=== PATIENT | female | born 1995 | race Two or more races ===

== ENCOUNTER 2025-01-18 18:46 | Emergency (ER) | payer OTHER, SELFPAY ==
--- NOTE | ~2025-01-18 | XR_ITS ---
CLINICAL HISTORY: CP, SOB 2 view chest x-ray Comparison: None Findings: The lungs are clear. Heart size is normal. No acute fracture. IMPRESSION: 1. No acute findings. This document has been electronically signed by: Bernadette Jackson MD on 01/18/2025 20:28:18
--- NOTE | 2025-01-18 18:52 | ECG_ITS ---
Test Reason : CHEST PAIN Blood Pressure : */* mmHG Vent. Rate : 86 BPM Atrial Rate : 86 BPM P-R Int : 150 ms QRS Dur : 82 ms QT Int : 364 ms P-R-T Axes : 53 62 49 degrees QTcB Int : 435 ms Normal sinus rhythm Normal ECG No previous ECGs available Referred By: Leana Graham Electronically Signed By: Conrado Kan
--- OUTSIDE RECORDS SUMMARY | 2025-01-18 19:07 | XMS_ITS | Clinical Summary ---
Author Organization [employer] Address [address] [facility] [address] [place] [address] Care Team Providers Care Club Car Attendant Name Role Phone Unavailable Primary Care Provider Unavailabl e Encounters Date Type Department Care Team Description 01/15/2025 Telephone [facility] MEDICINE [address] [place] [address] [phone] Lito Cabrera MD Results (Patient requesting to be added to the new patient wait list. ) from Last 3 Months Social History Tobacco Use Types Packs/Day Years Used Date Smoking Tobacco: Never Assessed Comments Unknown Sex and Gender Information Value Date Recorded Sex Assigned at Female 07/19/2022 10:40 AM EDT Legal Sex Female 10:40 AM EDT Gender Identity Female 07/19/2022 10:40 AM EDT Sexual Orientation Straight 07/19/2022 10 :40 AM EDT Last Filed Vital Signs Vital Sign Reading Time Taken Comments Blood Pressure 130/72 04/13/2022 12:07 AM EDT Pulse 101 04/13/2022 12:07 AM EDT Temperature - - Respiratory Rate - - Oxygen Saturation - - Inhaled Oxygen Concentration - - Weight 67.6 kg (149 lb) 04/13/2022 12:07 AM EDT Height 170.2 cm (5' 7 ) 04/13/2022 12:07 AM EDT Body Mass Index 23.34 04/13/2022 12:07 AM EDT Plan of Treatment Health Maintenance Due Date Last Done Comments Depression Screening 1994 Alcohol/Substance Use Screening 2006 Tobacco Screening 2006 Family Planning (PISQ) 2009 DTaP/Tdap/Td Vaccines (1 - Tdap) 2013 Hepatitis B Vaccines (1 of 3 - 19+ 3-dose series) 2013 Pap Smear 2015 COVID-19 Vaccine (2023-2 5 season) 2024 Influenza Vaccine (#1) 2024 Cervical Cancer Screening 2024 HPV/Cotest 2024 Zoster Vaccines (1 of 2) 2044 RSV Patients and Pa tients Aged 60 years or older (1 - 1-dose 75+ series) 2069 HIB Vaccines Aged Out No longer eligi ble based on patient's age to complete this topic HPV Vaccines Aged Out No longer eligi ble based on patient's age to complete this topic Hepatitis A Vaccines Aged Out No long er eligible based on patient's age to complete this topic IPV Vaccines Aged Out No longer eligi ble based on patient's age to complete this topic Meningococcal Vaccine Aged Out No harshal laurita eligible based on patient's age to complete this topic Pneumococcal Vaccine: Pediat rics (0 to 5 Years) and At-Risk Patients (6 to 49) Years) Aged Out No longer eligible b ased on patient's age to complete this topic RSV under 20 months Aged Out No longe r eligible based on patient's age to complete this topic Rotavirus Vaccines Aged Out No longer eligible based on patient's age to complete this topic
--- OUTSIDE RECORDS SUMMARY | 2025-01-18 19:07 | XMS_ITS | Clinical Summary ---
Author Organization [facility] Address [address] [place] [address] Care Team Providers Care Stringer Up Soldering Machine Name Role Phone Fernandez Yan PA-C Primary Care Provider [phone] Source Comments PLEASE NOTE, if this patient is a minor, it may be UNLAWFUL to discuss sensitive information that is contained in these records (such as FAMILY PLANNING, MENTAL HEALTH or SUBSTANCE ABUSE) with the minor patient's parent or other person without the patient's specific authorization.[facility] Allergies No known active allergies Medications albuterol sulfate 90 mcg/actuation inhalerIndication s:Mild intermittent asthma without complication ([facility]) Inhale 2 Puffs into the lungs every 4 to 6 (four to six) hours as needed for shortness of breath or wheezing 1 Inhaler 5 0 Active cholecalciferol, vitamin D3, 25 mcg (1,000 unit) tabletIndications :Vitamin D deficiency Take 1 Tab by mouth once daily 90 Tab 1 0 Active Active Problems Problem Noted Date Diagnosed Date COVID-19 08/09/2020 Overview (08/09/2020): COVID-19 Tracking [reviewed or updated 08/09/2020] ? ? COVID-19 Tested? - Yes - Date Tested 08/06/20 Testing Location - Other [address] testing site in [facility] - Testing Results - Positive ? ? Is patient ? No Vitamin D deficiency 07/27/2020 Asthma ([facility]) Myopia of both eyes with astigmatism Family History Medical History Relation Name Comments No Known Problems Father amnesia Maternal Grandfather Asthma Mother No Known Problems Paternal Grandfather No Known Problems Paternal Grandmother No Known Problems Sister 2 Relation Name Status Comments Father Alive Maternal Grandfather Alive Maternal Grandmother Alive Mother Alive Paternal Grandfather Alive Paternal Grandmother Alive Sister 2 Alive Social History Tobacco Use Types Packs/Day Years Used Date Smoking Tobacco: Never Smokeless Tobacco: Never Alcohol Use Standard Drinks/Week Comments Never 0 (1 standard drink = 0.6 oz pur e alcohol) Social Connections Answer Date Recorded Connectedness 0 05/27/2024 Financial Resource Strain Answer Date R ecorded Financial Resource Strain 0 2019 Stress Answer Date Recorded Stress 0 07/23/2020 Physical Activity Answer Date Recorded Physical Activity 0 07/23/2020 Food Insecurity Answer Date Recorded Food 0 06/14/2024 Transportation Needs Answer Date Record ed Transportation 0 07/23/2020 Housing Stability Answer Date Recorded Housing 0 07/23/2020 Safety and Environment Answer Date Derian rded Safety 0 07/23/2020 Utilities Answer Date Recorded Utilities 0 07/23/2020 Employment Answer Date Recorded Employment 0 07/23/2020 Comments No Sex and Gender Information Value Date Recorded Sex Assigned at Female 07/23/2020 3:04 PM PST Legal Sex Female 6:41 AM PDT Gender Identity Female 07/23/2020 3:04 PM PST Sexual Orientation Straight 07/23/2020 3: 04 PM PST 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 Not on file Not on f ile Last Filed Vital Signs Vital Sign Reading Time Taken Comments Blood Pressure 118/80 07/23/2020 1:59 PM EST Pulse 84 07/23/2020 1:59 PM EST Temperature 37.7 ??C (99.9 ??F) 07/23/2020 1:59 PM ES T Respiratory Rate 16 07/23/2020 1:59 PM EST Oxygen Saturation - - Inhaled Oxygen Concentration - - Weight 77.1 kg (170 lb) 07/23/2020 1:59 PM EST Height 172 cm (5' 7.72 ) 07/23/2020 1:59 PM EST Body Mass Index 26.06 07/23/2020 1:59 PM EST Plan of Treatment Health Maintenance Due Date Last Done Comments Anxiety Screening 1994 HPV Screening 1994 Pap + HPV 1994 Tobacco Screening 1994 Imm-DTaP/Tdap/Td (1 - Tdap) 2013 Imm-Hepatitis B (1 of 3 - 19+ 3-dose series) 3 Imm-Pneumococcal (1 of 2 - PCV) 2013 Cervical Cancer Screening 2015 Pap Smear 2015 Annual Preventive Care Visit 07/23/2021 07/23/2020 Relationship Safety Screening/Counseling 07/23/2021 07/23/2020 Hypertension Screening (#1) 07/23/2023 [id number] ( - season) 2024 Imm-Influenza (#1) 2024 Alcohol and Drug Screen 09/19/2024 07/23/2020 Depression Annual Screen 09/19/2024 07/23/2020 HIV Screening Completed 07/23/2020 Hepatitis C Screening Completed 07/23/2020 Cervical Ablation/Cold-Knife Conization Discontinued Cervical Cryotherapy Discontinued Colposcopy Discontinued Endometrial Biopsy Discontinued Excision/Leep Discontinued HPV Genotyping Discontinued Vaginal Pap Discontinued Vulvoscopy Discontinued Procedures Procedure Name Priority Date/Time Associated Diagnosis Comments ANTIBODY HIV-1&HIV-2 SINGLE RESULT Routine 07/23/2020 2:35 PM EST Screening for viral disease HEPATITIS C ANTIBODY Routine 07/23/2020 2:35 PM EST Screening for viral disease from Last 3 Months or Most Recently Relevant to Health Maintenance Results * HEPATITIS C ANTIBODY (07/23/2020 2:35 PM EST) HEPATITIS C VIRUS SCREEN NEGATIVE NEGATIVE [facility] Blood Blood / Unknown 07/23/2020 2 :35 PM EST 07/23/2020 2:43 PM EST Narrative [facility] 07/23/2020 6:42 PM EST [employer], a member of [address] [address] Consultant - Jovanna Brothers MD PT ID [id number] ORD# [id number] [facility] - BLOOD DRAW Final Result [employer] [address], [place] [phone] * HIV-1 & HIV-2 ANTIBODIES (07/23/2020 2:35 PM EST) HIV 1 AND 2 ANTIBODY SCREEN NEGATIVE NEGATIVE [facility] Comment: This assay is a 4th generation assay allowing for earlier detection of HIV infection by detecting the presence of the HIV-1 p24 antigen as well as the traditional antibodies to HIV type 1 (including group O) and type 2. ??Use of a 4th generation assay is the current CDC recommendation for HIV screening. Blood Blood / Unknown 07/23/2020 2 :35 PM EST 07/23/2020 2:43 PM EST Narrative [facility] - 07/23/2020 6:42 PM EST [employer], a member of [address] [address] Consultant - Jovanna Brothers MD PT ID [id number] ORD# [id number] [facility] - BLOOD DRAW Final Result [address] [address], from Last 3 Months or Most Recently Relevant to Health Maintenance Insurance [employer] Member Subscriber Plan / Payer (Ef fective 2024-Present) Name:Karrie Hess Relation to Subscriber:Self Name:Karrie Hess Payer ID:[id number] Group ID:Not on file Type:Indemnity Address: [facility] [address] [place] [address] Care Teams Stringer Up Soldering Machine Relationship Specialty Start Date End Date Fernandez Yan PA-C [address] [place] [address] PCP - General FAMILY MEDICINEMIKEY 01/14/22
--- OUTSIDE RECORDS SUMMARY | 2025-01-18 19:07 | XMS_ITS | Encounter Summary ---
Author Organization [employer] Address [address] [facility] 7[address] [place] [address] Care Team Providers Care Cougar Hunter Name Role Phone Unavailable Primary Care Provider Unavailabl e Reason for Visit * Reason Onset Date Comments Results 01/15/2025 Patient requesti ng to be added to the new patient wait list. Encounter Details Date Type Department Care Team ([facility] st Contact Info) Description 01/15/2025 Telephone [facility] MEDICINE [address] [place] [address] [phone] Name, MD Lito [address] [place] [phone] Results (Patient requesting to be added to the new patient wait list. ) Social History Tobacco Use Types Packs/Day Years Used Date Smoking Tobacco: Never Assessed Comments Unknown Sex and Gender Information Value Date Recorded Sex Assigned at Female 07/19/2022 10:40 AM EDT Legal Sex Female 10:40 AM EDT Gender Identity Female 07/19/2022 10:40 AM EDT Sexual Orientation Straight 07/19/2022 10 :40 AM EDT documented as of this encounter Miscellaneous Notes * Telephone Encounter - Myrna Cross - 01/15/2025 2:39 PM EDT Patient added to [facility] New Patient wait list as 01-15-2025 documented in this encounter Plan of Treatment Not on file documented as of this encounter Visit Diagnoses Not on filedocumented in this encounter
[2025-01-18 19:11] VITALS: BP 151/91; PULSE 86; RESP 18; TEMP 36.4; O2SAT 97; BMI 27.3
--- NOTE | 2025-01-18 19:12 | ED.CHESTPAIN ---
HPI - Chest Pain General Chief Complaint: Dyspnea Stated Complaint: CP, rib pain, back pain Time Seen by Provider: 01/18/25 23:06 Source: patient Mode of arrival: ambulatory Limitations: language barrier (Samoan) History of Present Illness ED Provider: KRISTINA HALE PA-C HPI narrative: 29 year old female with pmhx significant for asthma presents to the ED today for evaluation of bilateral rib pain and upper back pain x1 month. She reports associated shortness of breath. Reports history of asthma. She has been using her inhaler and nebulizer at home with little relief. Denies any injury/trauma/falls. Admits to associated dry cough. No sputum production. Denies chest pain, palpitations. Not on OCPs. Denies recent travel or long car rides. Denies fever, chills, sore throat, nausea, vomiting, abdominal pain, hemoptysis, leg pain/swelling. Related Data Previous Rx's ?Medication ?Instructions ?Recorded prednisone 20 mg tablet 40 mg (2 x 20 mg) PO DAILY 5 days 01/19/25 #10 tabs Allergies Allergy/AdvReac Type Severity Reaction Status Date / Time No Known Allergies Allergy Verified 01/18/25 19:13 [No Known Allergies*] Review of Systems Review of Systems: Yes all other systems are reviewed and are negative [facility] Past Medical History Attestation statement: The following information was validated with the patient. Source: old records reviewed and nursing notes reviewed Social History Social History Advance Directives: No Advance Directives Information Provided: No Do you have a plan to hurt others: No Plan Physical Exam Vital Signs: Vital Signs: Last Vital Signs Temp 98.2 F 01/18/25 23:53 Pulse 83 01/19/25 01:20 Resp 16 01/19/25 01:20 BP 133/84 01/18/25 23:53 Pulse Ox 96 01/18/25 23:53 O2 Del Method Room Air 01/18/25 23:53 BMI result Body Mass Index 27.3 Vital signs stable. Afebrile General: Well appearing, in no acute distress. Skin: Warm, dry, intact. No rashes or lesions. Head: Normocephalic, atraumatic. EENT: Hearing is intact b/l. Conjunctiva clear. Sclera is anicteric. Neck: Supple without LAD. Cardiac: Chest wall symmetric. RRR. Lungs: Normal respiratory effort without accessory muscle use. No tripoding. noted inspiratory and expiratory wheezes throughout Ext: Upper and lower extremities atraumatic, without tenderness, deformity, swelling or erythema. No pitting edema. No calf tenderness bilaterally. Neuro: AOx3. Normal speech. Ambulating with steady gait. Course Course Course Narrative: This is an RME performed by Bruce Graham CNP: Additional HPI, ROS, PE not included below will be deferred to primary provider. Patient is a 29-year-old female who presents emergency department for evaluation of chest pain, left lateral rib pain, upper back on the left side as well as shortness of breath. Onset 1 month ago. Symptoms worsened with deep inspiration. She states that last night she had a difficult time sleeping due to her symptoms which prompted her seeking evaluation today Plan: Serum labs, EKG, CXR, viral serologies Reevaluation(s) Reevaluation #1: 1400 -- CBC with slight leukocytosis to 11 which appears to be around her baseline. No left shift. No anemia. H&H stable. D-dimer undetectable, PE unlikely. Chemistry without acute electrolyte abnormality requiring intervention. No RACHEAL. Liver function WNL. Troponin undetectable. EKG showing normal sinus rhythm with a rate of 86 beats per minute, no acute ischemic changes or ST elevations. Chest x-ray without infiltrate or consolidation to suggest pneumonia. No pleural effusion. Negative COVID, flu, RSV. > exam concerning for asthma exacerbation. She was treated with breathing treatment and IV Solu-Medrol. On re-evaluation, patient reports significant improvement in symptoms. Her lungs are now CTA bilaterally. She states she feels well and would like to be discharged home. I feel this is reasonable. Will send a script for prednisone to pharmacy. Advised PCP follow-up. Patient has remained stable throughout ED visit today. Discussed worrisome signs and symptoms and when to return to the ED. All questions answered at this time. Patient is agreeable with disposition and stable for discharge. Medications Administered Discontinued Medications Generic Name Dose Route Start Last Admin Trade Name Freq PRN Reason Stop Dose Admin Albuterol/Ipratropium 3 ml 01/19/25 01:15 01/19/25 01:18 Albuterol/Iprat 2.5/0.5mg 3 Ml Ampul.Neb INHALE 01/19/25 01:16 3 ml ONCE ONE Administration Methylprednisolone Sodium Succinate 125 mg 01/19/25 00:54 01/19/25 01:25 Methylprednisolone Sod Succ 125 Mg/2 Ml Vial IVPUSH 01/19/25 00:55 125 mg ONCE ONE Administration Medical Decision Making Medical Decision Making [facility] Narrative: 29 year old female with pmhx significant for asthma presents to the ED today for evaluation of bilateral rib pain and upper back pain x1 month. Initially hypertensive. Not hypoxic. Afebrile. She is well-appearing and in no acute distress. On exam, normal respiratory effort without accessory muscle use. No tripoding. noted inspiratory and expiratory wheezes throughout. No pitting edema. No calf tenderness bilaterally. No JVD. Differential diagnosis consists of asthma exacerbation, costochondritis, ACS, PE, bronchitis, pneumonia, viral syndrome, arrhythmia labs, EKG, CXR, viral serologies ordered in triage Plan for bronchodilator protocol, solumedrol, and re-evaluation Differential Diagnosis Differential Diagnoses: The differential diagnosis associated with the presentation includes As above Admission/Observation Not indicated Lab Data [facility] Lab Attestation statement: I reviewed the patient's lab results. As above 01/18/25 19:53 01/18/25 19:53 Labs: Lab Results 01/18/25 Range/Units 19:53 WBC 11.0 H (4.8-10.8) X10*3/uL RBC 4.80 (4.20-5.50) X10*6/uL Hgb 13.7 (12.0-16.0) g/dl Hct 38.9 (37.0-47.0) % MCV 81.0 (80.0-98.0) fL MCH 28.5 (27.0-33.0) pg MCHC 35.2 H (31.0-35.0) g/dl RDW 12.2 (11.0-16.0) % Plt Count 348 (160-400) X10*3/uL MPV 9.0 L (9.4-12.3) fL Immature Gran % (Auto) 0.4 (0.0-0.4) % Neut % (Auto) 40.5 L (45-73) % Lymph % (Auto) 39.7 (20-40) % [place] % (Auto) 5.6 (2-11) % Eos % (Auto) 13.1 H (0-4) % Baso % (Auto) 0.7 (0-2) % Lymph # (Auto) 4.4 (1.2-4.9) X10*3/uL [place] # (Auto) 0.6 (0.1-1.2) X10*3/uL Eos # (Auto) 1.4 H (0.0-0.4) X10*3/uL Baso # (Auto) 0.1 (0.0-0.2) X10*3/uL Abs Immat Gran (auto) 0.04 H (0.00-0.03) X10*3/uL Absolute Neuts (auto) 4.5 (2.0-8.3) x10*3/uL Absolute Nucleated RBC 0.000 (0.0-0.012) X10*3/uL Nucleated RBC % (auto) 0.0 (0.0-0.2) /100WBC PT 11.1 (10.9-12.4) SEC INR 1.0 (0.9-1.1) D-Dimer High Sensitivty < 150 NG/ML Sodium 141 (135-145) mmol/L Potassium 4.2 (3.3-5.1) mmol/L Chloride 106 (96-108) mmol/L Carbon Dioxide 25 (22-29) mmol/L Anion Gap 14 (12-20) BUN 9 (9-16) mg/dL Creatinine 0.67 (0.5-1.4) mg/dL Estim Creat Clear Calc 128.4 Estimated GFR > 60 Random Glucose 88 (60-115) mg/dL Calcium 10.0 (8.4-10.2) mg/dL Total Bilirubin 0.3 (0.0-1.0) mg/dL AST 24 (5-31) U/L ALT 24 (0-31) U/L Alkaline Phosphatase 94 (39-117) U/L Troponin I High Sens < 2.7 (<3.5-17.0) ng/L Total Protein 8.1 H (6.5-8.0) g/dL Albumin 4.8 (3.5-5.0) g/dL Lipase 21 (8-78) U/L Influenza Type A (PCR) NEGATIVE (Negative) Influenza Type B (PCR) NEGATIVE (Negative) RSV RNA Qual (PCR) NEGATIVE (Negative) SARS-CoV-2 RNA (RT-PCR) NEGATIVE (Negative) Independent Interpretation I performed an independent interpretation of an: EKG and Plain X-Ray Interpretation: EKG showing normal sinus rhythm, rate of 86 beats per minute, no acute ischemic changes or ST elevation Chest x-ray without focal infiltrate or consolidation Radiology Impression Discussion of test interpretation with radiology: I have reviewed the radiologist's reading. Radiologist Impression: Ordering Physician: Leana Graham CNP Date of Service: 01/18/25 Procedure(s): ECG 12 lead EKG Accession Number(s): [id number] cc: ~ Test Reason : CHEST PAIN Blood Pressure : */* mmHG Vent. Rate : 86 BPM Atrial Rate : 86 BPM P-R Int : 150 ms QRS Dur : 82 ms QT Int : 364 ms P-R-T Axes : 53 62 49 degrees QTcB Int : 435 ms Normal sinus rhythm Normal ECG No previous ECGs available Ordering Physician: Leana Graham CNP Date of Service: 01/18/25 Procedure(s): XR chest 2V Accession Number(s): [id number] cc: Leana Graham CNP; Physician,Unknown ~ CLINICAL HISTORY: CP, SOB 2 view chest x-ray Comparison: None Findings: The lungs are clear. Heart size is normal. No acute fracture. IMPRESSION: 1. No acute findings. This document has been electronically signed by: Bernadette Jackson MD on 01/18/2025 20:28:18 Dictated By: Bernadette Jackson MD Signed By: <Electronically signed by Bernadette Jackson MD in OV> External Record Review External record reviewed: Inpatient record Prescription Management I considered prescription management with: Other (prednisone) Chronic Conditions Patient?s care impacted by: Other (asthma) Social Determinants Patient?s care significantly limited by Social Determinants of Health including: Other Social Determinant of Health Critical Care Time Critical Care Time Critical Care Time: No Discharge Plan Discharge Clinical Impression: Asthma with exacerbation Patient Disposition: Home, Self-Care Instructions: Asthma (ED) Additional Instructions: Your blood work is reassuring. You tested negative for COVID, flu, RSV. Your chest x-ray does not show pneumonia. You received a breathing treatment and steroid in the ED today with improvement. I am treating for an asthma exacerbation. Prednisone as a steroid that has been sent to your pharmacy. Take this once daily starting tomorrow as you already received a dose of steroids in the ED today. Continue your albuterol and nebulizer at home as needed. If you find that you are using this more often without improvement, please return to the ED as you may require further treatment. Follow up with your PCP as needed. Return with new or worsening symptoms. In the case of an emergency call 911. Prescriptions: New prednisone 20 mg tablet 40 mg PO DAILY 5 Days Qty: 10 0RF Referrals: Physician,Unknown J [Primary Care Provider] - Print Language: Samoan
[2025-01-18 19:57] LABS: MANUAL DIFF FLAG NO
[2025-01-18 20:00] LABS: Basophils Absolute Auto 0.1 X10*3/uL (0.0-0.2); Basophils Percent Auto 0.7 % (0-2); Eosinophils Absolute Auto 1.4 X10*3/uL (0.0-0.4); Eosinophils Percent Auto 13.1 % (0-4); Hematocrit 38.9 % (37.0-47.0); Hemoglobin 13.7 g/dl (12.0-16.0); Imm Gran Abs Auto 0.04 X10*3/uL (0.00-0.03); Imm Gran Pct Auto 0.4 % (0.0-0.4); Lymphocytes Absolute Auto 4.4 X10*3/uL (1.2-4.9); Lymphocytes Percent Auto 39.7 % (20-40); Mean Corpuscular HGB Conc 35.2 g/dl (31.0-35.0); Mean Corpuscular Hemoglobin 28.5 pg (27.0-33.0); Monocytes Absolute Auto 0.6 X10*3/uL (0.1-1.2); Monocytes Percent Auto 5.6 % (2-11); Neutrophils Absolute Auto 4.5 x10*3/uL (2.0-8.3); Neutrophils Percent Auto 40.5 % (45-73); Platelet Count 348 X10*3/uL (160-400); Red Cell Distribution Width 12.2 % (11.0-16.0)
[2025-01-18 20:06] LABS: Prothrombin Time 11.1 SEC (10.9-12.4)
[2025-01-18 20:16] LABS: Alanine Aminotransferase 24 U/L (0-31); Albumin Level 4.8 g/dL (3.5-5.0); Alkaline Phosphatase 94 U/L (39-117); Anion Gap 14 (12-20); Aspartate Amino Transferase 24 U/L (5-31); Bilirubin Total 0.3 mg/dL (0.0-1.0); Blood Urea Nitrogen 9 mg/dL (9-16); Carbon Dioxide 25 mmol/L (22-29); Chloride 106 mmol/L (96-108); Creatinine Clr Calc Pharmacy 128.4; Estimated Glomerular Filt Rate > 60; Glucose Random 88 mg/dL (60-115); Lipase 21 U/L (8-78); Potassium 4.2 mmol/L (3.3-5.1); Sodium 141 mmol/L (135-145); Total Protein 8.1 g/dL (6.5-8.0)
[2025-01-18 20:26] LABS: Troponin-I High Sensitivity < 2.7 ng/L (<3.5-17.0)
[2025-01-18 20:35] LABS: Influenza A PCR NEGATIVE (Negative); Influenza B PCR NEGATIVE (Negative); Resp Syncy Virus RNA Qual PCR NEGATIVE (Negative); SARS COV2 PCR INHOUSE NEGATIVE (Negative)
[2025-01-18 23:35] LABS: D Dimer High Sensitivity < 150 NG/ML
[2025-01-18 23:53] VITALS: BP 133/84; PULSE 83; RESP 16; TEMP 36.8; O2SAT 96
[2025-01-19] MEDS: Albuterol/Iprat 2.5/0.5MG 3 ML AMPUL.NEB INHALE (01:18)
[2025-01-19 01:20] VITALS: PULSE 83; RESP 16; O2SAT 96
[2025-01-19] MEDS: methylPREDNISolone Sod Succ 125 MG/2 ML VIAL IVPUSH (01:25)
--- NOTE | 2025-01-19 01:35 | PC.NURSE ---
pt moved to ed 24, to place on manager cardiac cath
[2025-01-19 02:33] VITALS: BP 154/93; PULSE 82; RESP 11; TEMP 36.4; O2SAT 98
== END 2025-01-19 02:37 | disposition home or self-care (01) ==
PROVIDERS: Nurse Practitioner Family; Physician Assistant Medical; Emergency Provider Emergency Medicine
DX: J45.901 Unspecified asthma with (acute) exacerbation (principal); R07.9 Chest pain, unspecified; M54.6 Pain in thoracic spine; R07.81 Pleurodynia; Z03.818 Encounter for observation for suspected exposure to other biological agents ruled out
CPT/HCPCS: 0241U; 36415; 71046; 80053; 83690; 84484; 85025; 85379; 85610; 93005; 94640; 96374; 99284; J2919

== ENCOUNTER → 2025-01-18 18:52 | Outpatient (BNV) | payer OTHER, SELFPAY | PROVIDERS: Emergency Provider Emergency Medicine; Visit Provider Internal Medicine Cardiovascular Disease | DX: R07.9 Chest pain, unspecified (principal) | CPT/HCPCS: 93010 ==

== ENCOUNTER → 2025-01-18 19:14 | Outpatient (BNV) | payer OTHER, SELFPAY | PROVIDERS: Visit Provider Nuclear Medicine | DX: R07.9 Chest pain, unspecified (principal); R06.02 Shortness of breath | CPT/HCPCS: 71046 ==

== ENCOUNTER → 2025-04-04 03:12 | Outpatient (BNV) | payer OTHER, SELFPAY | PROVIDERS: Visit Provider Radiology Vascular & Interventional Radiology | DX: R06.02 Shortness of breath (principal) | CPT/HCPCS: 71046 ==

== ENCOUNTER 2025-04-04 03:44 | Emergency (ER) | payer OTHER, SELFPAY ==
--- NOTE | 2025-04-04 | ECG_ITS ---
Test Reason : CHEST PAIN Blood Pressure : */* mmHG Vent. Rate : 97 BPM Atrial Rate : 97 BPM P-R Int : 140 ms QRS Dur : 80 ms QT Int : 350 ms P-R-T Axes : 50 67 55 degrees QTcB Int : 444 ms Normal sinus rhythm Normal ECG When compared with ECG of 18-Jan-2025 18:56, No significant change was found Referred By: Generic ED Physician Electronically Signed By: ISHA RAMIREZ
--- NOTE | ~2025-04-04 | XR_ITS ---
CLINICAL HISTORY: sob chest pain 2 view chest x-ray. Comparison: CR - XR CHEST 2V - 01/18/25 19:22 EDT Findings: The lungs are adequately expanded. No focal consolidation. No effusion or pneumothorax. Cardiac and mediastinal contours are within normal limits. No acute osseous abnormality Impression: No acute process. This document has been electronically signed by: Scott Quintana MD on 04/04/2025 05:16:42
[2025-04-04 03:59] VITALS: BP 135/98; PULSE 98; RESP 18; TEMP 36.6; O2SAT 97; BMI 26.6
[2025-04-04 04:20] LABS: Hematocrit 37.7 % (37.0-47.0); Hemoglobin 13.6 g/dl (12.0-16.0); Mean Corpuscular HGB Conc 36.1 g/dl (31.0-35.0); Mean Corpuscular Hemoglobin 29.1 pg (27.0-33.0); Mean Corpuscular Volume 80.7 fL (80.0-98.0); NRBC Abs Auto 0.000 X10*3/uL (0.0-0.012); NRBC Pct Auto 0.0 /100WBC (0.0-0.2); Platelet Count 188 X10*3/uL (160-400); Red Blood Count 4.67 X10*6/uL (4.20-5.50); White Blood Count 9.1 X10*3/uL (4.8-10.8)
[2025-04-04 04:34] LABS: Alanine Aminotransferase 23 U/L (0-31); Albumin Level 4.7 g/dL (3.5-5.0); Alkaline Phosphatase 83 U/L (39-117); Anion Gap 14 (12-20); Aspartate Amino Transferase 24 U/L (5-31); Blood Urea Nitrogen 11 mg/dL (9-16); Calcium 9.3 mg/dL (8.4-10.2); Carbon Dioxide 22 mmol/L (22-29); Chloride 107 mmol/L (96-108); Creatinine Clr Calc Pharmacy 116.4; Estimated Glomerular Filt Rate > 60; Potassium 3.4 mmol/L (3.3-5.1); Sodium 140 mmol/L (135-145); Total Protein 7.6 g/dL (6.5-8.0)
[2025-04-04 04:48] LABS: Troponin-I High Sensitivity < 2.7 ng/L (<3.5-17.0)
[2025-04-04 04:53] VITALS: BP 146/92; PULSE 85; RESP 18; O2SAT 98
--- OUTSIDE RECORDS SUMMARY | 2025-04-04 04:53 | XMS_ITS | Clinical Summary ---
Author Organization [facility] Address [address] [place] [address] Care Team Providers Care Cra Officer Name Role Phone Fernandez Yan PA-C Primary Care Provider [phone] Source Comments PLEASE NOTE, if this patient is a minor, it may be UNLAWFUL to discuss sensitive information that is contained in these records (such as FAMILY PLANNING, MENTAL HEALTH or SUBSTANCE ABUSE) with the minor patient's parent or other person without the patient's specific authorization.[facility] Allergies No known active allergies Medications albuterol sulfate 90 mcg/actuation inhalerIndication s:Mild intermittent asthma without complication ([facility]) Inhale 2 Puffs into the lungs every [...] (08/09/2020): COVID-19 Tracking [reviewed or updated 08/09/2020] COVID-19 Tested? - Yes - Date Tested 08/06/20 Testing Location - Other [address] testing site in [facility] - Testing Results - Positive Is patient ? 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 Not on file Not on f ile Last Filed Vital Signs Vital Sign Reading Time Taken Comments Blood Pressure 118/80 07/23/2020 1:59 PM EST Pulse 84 07/23/2020 1:59 PM EST Temperature 37.7 C (99.9 F) 07/23/2020 1:59 PM EST Respiratory Rate 16 07/23/2020 1:59 PM EST Oxygen Saturation - - Inhaled Oxygen Concentration - - Weight 77.1 kg (170 lb) 07/23/2020 1:59 PM EST Height 172 cm (5' 7.72 ) 07/23/2020 1:59 PM EST Body Mass Index 26.06 07/23/2020 1:59 PM EST Plan of Treatment Not on file Insurance [employer] Member Subscriber Plan / Payer (Ef fective 2024-Present) Name:Karrie Hess Relation to Subscriber:Self Name:Karrie Hess Payer ID:[id number] Group ID:Not on file Type:Indemnibrooklynn Address: [facility] [address] [place] [address] Care Teams Cra Officer Relationship Specialty Start Date End Date Fernandez Yan PA-C [address] [place] [address] PCP - General FAMILY MEDICINE PA 01/14/22
--- OUTSIDE RECORDS SUMMARY | 2025-04-04 04:53 | XMS_ITS | Clinical Summary ---
Author Organization [employer] Address [address] [facility] [address] [place] [address] Care Team Providers Care Hosiery Bagger Name Role Phone Unavailable Primary Care Provider Unavailabl e Encounters Date Type Department Care Team Description 01/15/2025 Telephone [facility] [address] [place] [phone] Lito Cabrera MD Results (Patient requesting to [...] 04/13/2022 12:07 AM EDT Plan of Treatment Upcoming Encounters Date Type Department Care Team ([facility] st Contact Info) Description 05/08/2025 9:00 AM EDT Office Visit [facility] [address] [place] [address] Lito Cabrera MD [address] [place], [place] [phone] Health Maintenance Due Date Last Done Comments Depression Screening 1994 HIV Screening 1994 SDOH Screening 1994 Disability Screening 1994 Alcohol/Substance Use Screening 2006 Tobacco Screening 2006 Family Planning (PISQ) 2009 HPV Vaccines (1 - 3-dose series) 2009 Hepatitis C Screening 2012 DTaP/Tdap/Td Vaccines (1 - Tdap) 2013 Hepatitis B Vaccines (1 of 3 - 19+ 3-dose series) 2013 Pap Smear 2015 COVID-19 Vaccine (2 - 2023-2 5 season) 2024 05/05/2021 Cervical Cancer Screening 2024 HPV/Cotest 2024 Influenza Vaccine (#1) 2025 Zoster Vaccines (1 of 2) 2044 RSV [...] patient's age to complete this topic Meningococcal B Vaccine Aged Out No l onger eligible based on patient's age to complete this topic Meningococcal Vaccine Aged Out No harshal laurita eligible based on patient's age to complete this topic Pneumococcal Vaccine: Pediat rics (0 to 5 Years) and At-Risk Patients (6 to 49) Years Aged Out No longer eligi ble based on patient's age to complete this topic RSV under 20 months Aged Out No longe r eligible based on patient's age to complete this topic Rotavirus Vaccines Aged Out No longer eligible based on patient's age to complete this topic
[2025-04-04 04:58] LABS: Resp Syncy Virus RNA Qual PCR NEGATIVE (Negative); SARS COV2 PCR INHOUSE NEGATIVE (Negative)
[2025-04-04 06:58] VITALS: BP 139/93; PULSE 94; RESP 16; TEMP 36.9; O2SAT 96
--- NOTE | 2025-04-04 07:01 | ED_ITS ---
HPI - Asthma General Chief Complaint: Dyspnea Stated Complaint: Asthma + CP Time Seen by Provider: 04/04/25 06:58 Source: patient, old records reviewed and educational sign language interpreter Mode of arrival: ambulatory Limitations: no limitations History of Present Illness ED Provider: PAM SEBASTIAN Narrative: 29 yo female with PMH of poorly controlled asthma she states she uses albuterol and daily steroid inhaler - orange inhaler which would be flovent. She notes she has had a bad run of asthma recently took 5 day burst on 03/13 with some improvement but worse again. No fevers, no sputum, no chest pains. She is not on any OCPs. no travel or procedures. She states she tries albuterol but it continues. MD complaint: asthma attack , shortness of breath and wheezing Onset (ago): week(s) Severity: moderate Context: other Associated symptoms: dry cough Asthma History: childhood onset Treatments Prior to Arrival: inhaled bronchodilator and inhaled steroid Related Data Previous Rx's ?Medication ?Instructions ?Recorded prednisone 20 mg tablet 40 mg (2 x 20 mg) PO DAILY 5 days 01/19/25 #10 tabs prednisone 10 mg tablet 10 mg PO DIRECTED #41 tab s 04/04/25 Allergies Allergy/AdvReac Type Severity Reaction Status Date / Time No Known Allergies (No Known Allergy Verified 04/04/25 03:59 Allergies*) Review of Systems 2 Review of Systems: Constitutional : No Fever, No Chills ENT/Mouth : No Hoarseness, No sore throat, No Rhinorrhea Eyes: No Redness, No Discharge, No Vision Changes Cardiovascular : No Chest Pain, positive SOB, positive Dyspnea on Exertion, No Edema Respiratory : positive Cough, No Sputum, positive Wheezing, Gastrointestinal : No Nausea, No Vomiting, No Diarrhea, No abdominal Pain Genitourinary : No Dysuria, No Hematuria Musculoskeletal : No joint pain, No Myalgias Skin : No rash Neuro : No Weakness, No Numbness, No Headache Psych : No anxiety, depression Heme/Lymph: No Bruising, No Bleeding Endocrine : No Polyuria, No Polydipsia All other systems reviewed and are negative PMFSH Past Medical History Attestation statement: The following information was validated with the patient. Source: old records reviewed Medical History (Updated 04/04/25 @ 07:45 by Melissa Huerta DO) Asthma Social History Social History (Updated 07/17/25 @ 07:36 by Melissa Huerta DO) Patient Tobacco Use Status: Never used Tobacco Smoked in Last 30 Days: No Use of substances other than those prescribed or required for medical reasons: No Advance Directives: No Advance Directives Information Provided: Yes Physical Exam 2 Vital Signs: Vital Signs: Last Vital Signs Temp 98.4 F 04/04/25 06:58 Pulse 94 04/04/25 06:58 Resp 16 04/04/25 06:58 BP 139/93 H 04/04/25 06:58 Pulse Ox 96 04/04/25 06:58 O2 Del Method Room Air 04/04/25 06:58 BMI result Body Mass Index 26.6 Appearance: Alert. Oriented X3. No acute distress. Eyes: Pupils equal, round and reactive to light. ENT: Pharynx normal. Neck: Normal inspection. Neck supple. CVS: Normal heart rate and rhythm. Pulses normal. Respiratory: No respiratory distress. Breath sounds diffuse exp wheezes noted. Abdomen: Soft and nontender. Skin: Skin warm and dry. Normal skin color. Normal skin turgor. Extremities: No lower extremity edema. No calf ttp Neuro: Oriented X 3. No motor deficit. No sensory deficit. CN2-12 intact Medications Administered Discontinued Medications Generic Name Dose Route Start Last Admin Trade Name Freq PRN Reason Stop Dose Admin Prednisone 60 mg 04/04/25 07:17 04/04/25 07:24 Prednisone 20 Mg Tablet PO 04/04/25 07:18 60 mg ONCE ONE Administration Medical Decision Making Medical Decision Making [facility] Narrative: 29 yo female with asthma here with c/o asthma exacerbation again she feels tightness and pain in her lungs. She states she just completed 5 day course on 03/19. No fevers, no cough, no OCPs. At this time she is wheezing on exam but not labored she will get viral panel, CXR, EKG. Start on prednisone taper. Differential Diagnosis Differential Diagnoses: The differential diagnosis associated with the presentation includes asthma, URI doubt VTE she is PERC negative Admission/Observation Consideration of admission/observation: Escalation of care including admission/observation considered no hypoxia feeling better stable for DC Lab Data [facility] Lab Attestation statement: I reviewed the patient's lab results. 04/04/25 04:16 04/04/25 04:16 Labs: Lab Results 04/04/25 Range/Units 04:16 WBC 9.1 (4.8-10.8) X10*3/uL RBC 4.67 (4.20-5.50) X10*6/uL Hgb 13.6 (12.0-16.0) g/dl Hct 37.7 (37.0-47.0) % MCV 80.7 (80.0-98.0) fL MCH 29.1 (27.0-33.0) pg MCHC 36.1 H (31.0-35.0) g/dl RDW 12.7 (11.0-16.0) % Plt Count 188 D (160-400) X10*3/uL MPV 10.1 (9.4-12.3) fL Absolute Nucleated RBC 0.000 (0.0-0.012) X10*3/uL Nucleated RBC % (auto) 0.0 (0.0-0.2) /100WBC Sodium 140 (135-145) mmol/L Potassium 3.4 (3.3-5.1) mmol/L Chloride 107 (96-108) mmol/L Carbon Dioxide 22 (22-29) mmol/L Anion Gap 14 (12-20) BUN 11 (9-16) mg/dL Creatinine 0.73 (0.5-1.4) mg/dL Estim Creat Clear Calc 116.4 Estimated GFR > 60 Random Glucose 110 (60-115) mg/dL Calcium 9.3 D (8.4-10.2) mg/dL Total Bilirubin 0.5 (0.0-1.0) mg/dL AST 24 (5-31) U/L ALT 23 (0-31) U/L Alkaline Phosphatase 83 (39-117) U/L Troponin I High Sens < 2.7 (<3.5-17.0) ng/L Total Protein 7.6 (6.5-8.0) g/dL Albumin 4.7 (3.5-5.0) g/dL Influenza Type A (PCR) NEGATIVE (Negative) Influenza Type B (PCR) NEGATIVE (Negative) RSV RNA Qual (PCR) NEGATIVE (Negative) SARS-CoV-2 RNA (RT-PCR) NEGATIVE (Negative) Independent Interpretation I performed an independent interpretation of an: EKG and Plain X-Ray (normal ) Interpretation: Rate: 97 Rhythm: NSR [place]: normal Normal P waves. Normal FLORENCIO. Normal QRS complex. ST T wave : no GORAN, inverted t wave V1 qTC: 444 prior studies: no ischemia The study has been interpreted contemporaneously by me. . Radiology Impression Discussion of test interpretation with radiology: I have reviewed the radiologist's reading. External Record Review External record reviewed: Outpatient record Prescription Management I considered prescription management with: Antibiotic and Other Discharge Plan Discharge Clinical Impression: Asthma with exacerbation Patient Disposition: Home, Self-Care Instructions: Asthma (ED) Additional Instructions: labs and chest xray normal please return for any worsening symptoms or concerns continue to take your nebs and inhalers follow up with your doctor as soon as possible Prescriptions: New prednisone 10 mg tablet 10 mg PO DIRECTED Qty: 41 0RF Rx Instructions: see taper instructions 60mg on day 1-5, 40mg on day 6, 30mg on day 7, 20mg on day 8, 10mg on day 9, 5mg on day 10 No Action prednisone 20 mg tablet 40 mg PO DAILY 5 Days Qty: 10 0RF Stand Alone Forms: Work/School Release Print Language: Eritrean
[2025-04-04 07:42] VITALS: PULSE 91; RESP 15; O2SAT 97
[2025-04-04] MEDS: Albuterol Sulfate 2.5 MG, Albuterol/Iprat 2.5/0.5MG 3 ML 3 ML INHALE (07:44)
[2025-04-04 08:04] VITALS: BP 140/72; PULSE 96; RESP 15; O2SAT 96
[2025-04-04 08:55] VITALS: BP 140/72; PULSE 96; RESP 15; TEMP -17.7; TEMP 0; O2SAT 96
== END 2025-04-04 08:56 | disposition home or self-care (01) ==
PROVIDERS: Emergency Provider Emergency Medicine
DX: J45.901 Unspecified asthma with (acute) exacerbation (principal); R07.89 Other chest pain; Z03.818 Encounter for observation for suspected exposure to other biological agents ruled out
CPT/HCPCS: 36415; 71046; 80053; 84484; 85027; 87637; 93005; 94640; 99284; 99285

== ENCOUNTER → 2025-04-04 03:54 | Outpatient (BNV) | payer OTHER, SELFPAY | PROVIDERS: Emergency Provider Emergency Medicine; Visit Provider Internal Medicine | DX: R07.9 Chest pain, unspecified (principal) | CPT/HCPCS: 93010 ==

== ENCOUNTER 2025-05-08 09:39 | Outpatient (REF) | payer OTHER, SELFPAY ==
--- NOTE | ~2025-05-08 | XR_ITS ---
EXAMINATION: XR THORACIC SPINE CLINICAL INFORMATION: PAIN COMPARISON: Correlated to chest x-ray dated April 04, 2025. TECHNIQUE: AP and lateral views FINDINGS: Mild endplate sclerosis at multiple levels. Small marginal osteophyte formation at multiple levels. No acute cortical disruption or gross malalignment. Mild S-shaped curvature of the thoracic spine. No lytic or blastic lesions. XR/XR thoracic spine 2V IMPRESSION: Mild multilevel thoracic spondylosis without acute fracture or gross listhesis. Mild scoliosis, which could be positional. Electronically signed by: Keith Telles MD 05/08/2025 12:19 PM EDT
--- OUTSIDE RECORDS SUMMARY | 2025-05-08 09:00 | XMS_ITS | Encounter Summary ---
Author Organization [facility] Address [address] [place] [address] [address] [place] [address] Care Team Providers Care Contract Administration Manager Name Role Phone Lito Cabrera MD Primary Care Provider [phone] Reason for Referral * Consultation (Routine) - Authorized Specialty Diagnoses / Procedures Referred By Pancho eduardo Referred To Contact Midwifery Diagnoses Screening for cervical cancer Lito Cabrera MD [address] [place] [address] Phone: tel: fax: Melly Javier CNM [address] [place] [address] Phone: tel: fax: Referral ID Status Reason Start Date Expiration Date Visits Requested Visits Authorized [id number] Authorized Consult and Treat 05/08/2025 05/08/2026 1 1 Reason for Visit * Reason Comments New patient Encounter Details Date Type Department Care Team ([facility] st Contact Info) Description 05/08/2025 9:00 AM EDT Office Visit [facility] [address] [place] [phone] Lito Cabrera MD [address] [place] [phone] Asthma, unspecified asthma severity, unspecified whether complicated, unspecified whether persistent (Primary Dx); Screening for cervical cancer; Screening for diabetes mellitus; Screening for cholesterol level; Upper back pain on right side Social History Tobacco Use Types Packs/Day Years Used Date Smoking Tobacco: Never Smokeless Tobacco: Never Tobacco Cessation:Counseling Given: Not Answered Alcohol Use Standard Drinks/Week Comments Never 0 (1 standard drink = 0.6 oz pur e alcohol) Depression Answer Date Recorded Patient Health Questionnaire-9 Score 4 05/08/2025 Patient Health Questionnaire-9 Score 4 05/08/2025 Last PHQ-9: Questionnaire Data Not on file 0 05/08/2025 Housing Stability Answer Date Recorded What is your housing situation today? I have jesus norwood 05/08/[address] you li ve. Do you have problems with any of the following? None of the above 05/08/2025 Food Insecurity Answer Date Recorded Within the past 12 months, y ou worried that your food would run out before you got money to buy more: Sometimes True 2024 Within the past 12 months,th e food you bought just didn't last and you didn't have enough money to get more: Sometimes True 05/08/2025 Transportation Answer Date Recorded In the past 12 months, has l ack of transportation kept you from medical appts, meetings, work or from getting things needed for daily living? No 05/08/2025 Utilities Answer Date Recorded In the past 12 months, has t he electric, gas, oil or water company threatened to shut off services in your home? No 05/08/2025 Depression Answer Date Recorded Patient Health Questionnaire-2 Score 1 05/08/2025 Internet Access Answer Date Recorded Internet Access Q1 Yes 05/08/2025 Internet Access Q2 Not on file 05/08/2025 Comments Unknown Sex and Gender Information Value Date Recorded Sex Assigned at Female 07/19/2022 10:40 AM EDT Legal Sex Female 10:40 AM EDT Gender Identity Female 07/19/2022 10:40 AM EDT Sexual Orientation Straight 07/19/2022 10 :40 AM EDT documented as of this encounter Last Filed Vital Signs Vital Sign Reading Time Taken Comments Blood Pressure 130/88 05/08/2025 9:09 AM EDT Pulse 82 05/08/2025 9:09 AM EDT Temperature 36.8 C (98.3 F) 05/08/2025 9:09 AM EDT Respiratory Rate 20 05/08/2025 9:09 AM EDT Oxygen Saturation 96% 05/08/2025 9:09 AM EDT Inhaled Oxygen Concentration - - Weight 73.9 kg (163 lb) 05/08/2025 9:09 AM EDT Height 170.2 cm (5' 7 ) 05/08/2025 9:09 AM EDT Body Mass Index 25.53 05/08/2025 9:09 AM EDT documented in this encounter Functional Status * Over the past 2 weeks, how often have you been bothered by any of the following problems? Question Answer Date of Assessment Author Patient Health Questionnaire-2 Score 1 05/08/2025 10:02 AM EDT Rob Neri MA * Little interest or pleasure in doing things Answer Date of Assessment Author Several days 05/08/2025 10:02 AM Marlyn Zapata MA * Feeling down, depressed, or hopeless Answer Date of Assessment Author Not at all 05/08/2025 10:02 AM Marlyn Zapata MA * Trouble falling or staying asleep, or sleeping too much Answer Date of Assessment Author Several days 05/08/2025 10:02 AM Marlyn Zapata MA * Feeling tired or having little energy Answer Date of Assessment Author Several days 05/08/2025 10:02 AM Marlyn Zapata MA * Poor appetite or overeating Answer Date of Assessment Author Several days 05/08/2025 10:02 AM Marlyn Zapata MA * Feeling bad about yourself - or that you are a failure or have let yourself or your family down Answer Date of Assessment Author Not at all 05/08/2025 10:02 AM Marlyn Zapata MA * Trouble concentrating on things, such as reading the newspaper or watching television Answer Date of Assessment Author Not at all 05/08/2025 10:02 AM Marlyn Zapata MA * Moving or speaking so slowly that other people could have noticed? Or the opposite - being so fidgety or restless that you have been moving around a lot more than usual. Answer Date of Assessment Author Not at all 05/08/2025 10:02 AM Marlyn Zapata MA * Thoughts that you would be better off or hurting yourself in some way Answer Date of Assessment Author Not at all 05/08/2025 10:02 AM [place] Marlyn Neri MA * Patient Health Questionnaire-9 Score Answer Date of Assessment Author 4 05/08/2025 10:02 AM [place] Marlyn Neri MA * Over the last 2 weeks, how often have you been bothered by any of the following problems? Question Answer Date of Assessment Author Feeling nervous, anxious, or on edge 1 05/08/2025 10:03 AM EDT Matt Neri MA Not being able to stop or control worrying 1 05/08/2025 10:03 AM Matt Zapata MA Worrying too much about different things 1 05/08/2025 10:03 AM Matt Zapata MA Trouble relaxing 2 05/08/2025 10:03 AM Marlyn Zapata MA Being so restless that it is hard to sit still 2 05/08/2025 10:03 AM Matt Zapata MA Becoming easily annoyed or irritable 1 05/08/2025 10:03 AM Matt Zapata MA Feeling afraid as if something awful might happen 1 05/08/2025 10:03 AM Marlyn Mcnulty MA LOGA-7 Total Score 9 05/08/2025 10:03 AM Marlyn Zapata MA documented as of this encounter Progress Notes * Lito Cabrera MD - 05/08/2025 9:00 AM EDT Subjective Patient ID: Karrie Fields is a 29 y.o. female who presents for New patient. Patient comes for the first time to see me. She is coming to establish primary care. She has a personal history of asthma. The only medication she uses for asthma is albuterol that she requires to use daily. Her last ER visit for asthma was about a month ago. Her last hospitalization for asthma wasabout 15 years ago. She does not smoke cigarettes. She describes daily wheezing, occasional nonproductive cough, mild dyspnea on exertion. She does not recall when was her last Tdap. She does not recall if she was ever vaccinated for pneumonia. She works at a local [employer]. She is sexually active and uses condoms for STD prevention and family-planning. She is due for a Pap smear. Review of Systems Constitutional: Negative for chills and fever. HENT: Negative for sore throat. Respiratory: Positive for cough and wheezing. Negative for shortness of breath. See HPI Cardiovascular: Negative for chest pain, palpitations and leg swelling. Gastrointestinal: Negative for abdominal pain. Musculoskeletal: Patient complains of about 8 months of right upper back pain. No history of trauma. No radiation ofthe pain. Pain is precipitated by deep breaths and movement of the arms. Visit Vitals BP 130/88 (BP Location: Left arm, Patient Position: Sitting, BP Cuff Size: Adult) Pulse 82 Temp 98.3 ??F (36.8 ??C) (Oral) Resp 20 Ht 5' 7 (1.702 m) Wt 163 lb (73.9 kg) SpO2 96% BMI 25.53 kg/m?? Smoking Status Never BSA 1.87 m?? Objective Physical Exam Constitutional: Appearance: Normal appearance. Cardiovascular: Rate and Rhythm: Normal rate and regular rhythm. Heart sounds: No murmur heard. No gallop. Pulmonary: Effort: Pulmonary effort is normal. No respiratory distress. Breath sounds: Normal breath sounds. No wheezing. Musculoskeletal: Thoracic back: Normal. No swelling or bony tenderness. Right lower leg: No edema. Left lower leg: No edema. Neurological: General: No focal deficit present. Mental Status: She is alert. Motor: No weakness. Assessment/Plan Diagnoses and all orders for this visit: Asthma, unspecified asthma severity, unspecified whether complicated, unspecified whether persistent Comments: Not well-controlled. Possibly moderate persistent at this point I recommended daily Arnuity, reminded to rinse mouth after use Continue risk albuterol I started the patient on Singulair as well. She agreed to come at a later date for Tdap and PCV 20. Orders: - CBC auto differential; Future - fluticasone furoate (Arnuity Ellipta) 100 MCG/ACT inhaler; Inhale 1 puff Once per day. Rinse mouth with water after use to reduce aftertaste and incidence of candidiasis. Do not swallow. - albuterol 108 (90 Base) MCG/ACT inhaler; Inhale 2 puffs every 6 (six) hours if needed for wheezing. - montelukast (Singulair) 10 MG tablet; Take 1 tablet (10 mg) by mouth Once per day. Screening for cervical cancer Comments: Referral to gynecology for Pap smear Orders: - Referral to Gynecology (Melly); Future Screening for diabetes mellitus Comments: I recommended to check fasting blood work listed below Orders: - Comprehensive Metabolic Panel; Future Screening for cholesterol level Comments: I recommended to check fasting blood work listed below Orders: - Lipid Panel, Standard; Future Upper back pain on right side Comments: 8 months of musculoskeletal back pain. Not relieved by the use of OTC acetaminophen or NSAIDs. I suggested physical therapy but she does not have the time at the moment. Will do x-ray of the thoracicspine and she was prescribed a course of baclofen at bedtime. We discussed the sedative side effects of the medication. Orders: - XR Thoracic Spine 2 Views; Future Other orders - baclofen (Lioresal) 10 MG tablet; Take 1 tablet (10 mg) by mouth if needed at bedtime for muscle spasms. documented in this encounter Plan of Treatment Upcoming Encounters Date Type Department Care Team (Late st Contact Info) Description 07/29/2025 11:30 AM EST Office Visit [facility] [address] [place] [phone] Name, MD iLto [address] [place] [phone] Scheduled Orders Name Type Priority Associated Diagnoses Orde r Schedule CBC auto differential Lab Routine Asthma, unspecified asthma severity, unspecified whether complicated, unspecified whether persistent Expected: 05/08/2025 (Approximate), Expires: 05/08/2026 Comprehensive Metabolic Panel Lab Routine Screening for diabetes mellitus Expected: 05/08/2025 (Approximate), Expires: 05/08/2026 Lipid Panel, Standard Lab Routine Screening for cholesterol level Expected: 05/08/2025 (Approximate), Expires: 05/08/2026 XR Thoracic Spine 2 Views Imaging Routine Upper back pain on right side Expected: 05/08/2025, Expires: 05/08/2026 Scheduled Referrals Name Type Priority Associated Diagnoses Order Schedule Referral to Gynecology (Melly) Outpatient Referral Routine Screening for cervical cancer Expected: 05/08/2025 (Approximate), Expires: 05/08/2026 documented as of this encounter Visit Diagnoses Diagnosis Asthma, unspecified asthma severity, unspecified whether complicated, unspecified whether persistent- Primary Screening for cervical cancer Screening for malignant neoplasm of the cervix Screening for diabetes mellitus Screening for cholesterol level Upper back pain on right side documented in this encounter Additional Health Concerns Assessment Noted Time PHQ-9 Depression Total Score: 4 05/08/20 10:02 AM EDT documented as of this encounter Care Teams Contract Administration Manager Relationship Specialty Start Date End Date Name, MD Lito [address] [place] [phone] PCP - General Internal Medicine 05/08/25 documented as of this encounter
--- OUTSIDE RECORDS SUMMARY | 2025-05-08 10:29 | XMS_ITS | Clinical Summary ---
Author Organization [facility] Address [address] [place] [address] Care Team Providers Care Electronic Warfare Technician Name Role Phone Fernandez Yan PA-C Primary Care Provider [phone] Source Comments PLEASE NOTE, if this patient is a minor, it may be UNLAWFUL to discuss sensitive information that is contained in these records (such as FAMILY PLANNING, MENTAL HEALTH or SUBSTANCE ABUSE) with the minor patient's parent or other person without the patient's specific authorization.[facility] Allergies No known active allergies Medications albuterol sulfate 90 mcg/actuation inhalerIndication s:Mild intermittent asthma without complication ([facility]) Inhale 2 Puffs into the lungs every [...] Date Tested 08/06/20 Testing Location - Other [address] testing site in [facility] - Testing Results - Positive [...] 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
[2025-05-08 12:24] LABS: MANUAL DIFF FLAG NO
[2025-05-08 12:26] LABS: Hematocrit 44.1 % (37.0-47.0); Hemoglobin 14.8 g/dl (12.0-16.0); Imm Gran Abs Auto 0.02 X10*3/uL (0.00-0.03); Imm Gran Pct Auto 0.3 % (0.0-0.4); Lymphocytes Absolute Auto 2.3 X10*3/uL (1.2-4.9); Mean Corpuscular HGB Conc 33.6 g/dl (31.0-35.0); Mean Corpuscular Hemoglobin 28.7 pg (27.0-33.0); Mean Corpuscular Volume 85.5 fL (80.0-98.0); NRBC Abs Auto 0.000 X10*3/uL (0.0-0.012); NRBC Pct Auto 0.0 /100WBC (0.0-0.2); Platelet Count 369 X10*3/uL (160-400); Red Blood Count 5.16 X10*6/uL (4.20-5.50); White Blood Count 7.3 X10*3/uL (4.8-10.8)
[2025-05-08 12:57] LABS: Alanine Aminotransferase 26 U/L (0-31); Albumin Level 5.2 g/dL (3.5-5.0); Alkaline Phosphatase 86 U/L (39-117); Anion Gap 13 (12-20); Aspartate Amino Transferase 27 U/L (5-31); Blood Urea Nitrogen 14 mg/dL (9-16); Calcium 10.0 mg/dL (8.4-10.2); Carbon Dioxide 24 mmol/L (22-29); Chloride 105 mmol/L (96-108); Cholesterol 243 mg/dL (<200); Estimated Glomerular Filt Rate > 60; HDL Cholesterol 54 mg/dL (>40); Potassium 4.4 mmol/L (3.3-5.1); Sodium 138 mmol/L (135-145); Total Protein 8.3 g/dL (6.5-8.0); Triglycerides 166 mg/dL (<150)
== END 2025-05-08 09:40 | disposition home or self-care (01) ==
LOC: HO.HHCX 09:39
PROVIDERS: PCP Internal Medicine Geriatric Medicine; Visit Provider Internal Medicine Geriatric Medicine
DX: Z13.1 Encounter for screening for diabetes mellitus (principal); Z13.220 Encounter for screening for lipoid disorders; J45.909 Unspecified asthma, uncomplicated; M54.9 Dorsalgia, unspecified
CPT/HCPCS: 36415; 72070; 80053; 80061; 85025

== ENCOUNTER → 2025-05-08 09:57 | Outpatient (BNV) | payer OTHER, SELFPAY | PROVIDERS: PCP Internal Medicine Geriatric Medicine; Visit Provider Radiology Diagnostic Radiology | DX: M47.814 Spondylosis without myelopathy or radiculopathy, thoracic region (principal) | CPT/HCPCS: 72070 ==

== ENCOUNTER 2025-08-21 16:09 | Outpatient (REF) | payer OTHER, SELFPAY ==
--- OUTSIDE RECORDS SUMMARY | 2025-08-21 15:45 | XMS_ITS | Encounter Summary ---
Author Organization [employer] Address [address] [place] [address] Care Team Providers Care Thumb Sewer Name Role Phone Name, Lito PHILIP Primary Care Provider [phone] Encounter Details Date Type Department Care Team (Latest Contact Info) Description 08/21/2025 3:45 PM EST Procedure Visit [facility] [address] [place] [address] Melly Javier CN [address] [place] [address] Cervical cancer screening (Primary Dx); Screening examination for venereal disease Social History Tobacco Use Types Packs/Day Years [...] Q2 Not on file 05/08/2025 Comments Unknown Intention Date Recorded No desire to become (finding) 1 10/22/2024 Sex and Gender Information Value Date Recorded Sex Assigned at Female 07/19/2022 10:40 AM EDT Legal Sex Female 10:40 AM EDT Gender Identity Female 07/19/2022 10:40 AM EDT Sexual Orientation Straight 07/19/2022 10 :40 AM EDT documented as of this encounter Last Filed Vital Signs Vital Sign Reading Time Taken Comments Blood Pressure 118/80 08/21/2025 3:51 PM EST Pulse 68 08/21/2025 3:51 PM EST Temperature 35.7 C (96.2 F) 08/21/2025 3:51 PM EST Respiratory Rate 12 08/21/2025 3:51 PM EST Oxygen Saturation - - Inhaled Oxygen Concentration - - Weight 73.8 kg (162 lb 12.8 oz) 08/21/2025 3:51 PM EST Height 170.2 cm (5' 7 ) 08/21/2025 3:51 PM EST Body Mass Index 25.5 08/21/2025 3:51 PM EST documented in this encounter Progress Notes * Melly Javier CNM - 08/21/2025 3:45 PM EST Subjective Patient ID: Karrie Fields is a 30 y.o. female who presents for pap She thinks last pap was 5 years ago, no prior abnormal. 1 AMAB partner x 5y, no safety concerns. Would like STI testing with pap and breast exam today. 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 Monthly menses x 6d, no heavy flow or bothersome cramping. Not planning in the near year. Happy with condoms. Review of Systems Genitourinary: Negative for dyspareunia, dysuria, frequency, genital sores, hematuria, menstrual problem, pelvic pain, urgency, vaginal bleeding, vaginal discharge and vaginal pain. No abnormal pap, no abnormal bleeding, no breast pain, no breast mass, no nipple discharge Objective BP 118/80 Pulse 68 Temp 96.2 ??F (35.7 ??C) (Temporal) Resp 12 Ht 5' 7 (1.702 m) Wt 162 lb 12.8 oz (73.8 kg) LMP 08/11/2025 (Exact Date) BMI 25.50 kg/m?? 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 Constitutional: Appearance: Normal appearance. Chest: Breasts: Right: Normal. No swelling, bleeding, inverted nipple, mass, nipple discharge, skin change or tenderness. Left: Normal. No swelling, bleeding, inverted nipple, mass, nipple discharge, skin change or tenderness. Genitourinary: General: Normal vulva. Labia: Right: No rash, tenderness, lesion or injury. Left: No rash, tenderness, lesion or injury. Vagina: Normal. No signs of injury and foreign body. No vaginal discharge, erythema, tenderness, bleeding or lesions. Cervix: No cervical motion tenderness, discharge, friability, lesion, erythema, cervical bleeding or eversion. Uterus: Normal. Not enlarged and not tender. Adnexa: Right adnexa normal and left adnexa normal. Right: No mass, tenderness or fullness. Left: No mass, tenderness or fullness. Lymphadenopathy: Upper Body: Right upper body: No supraclavicular or axillary adenopathy. Left upper body: No supraclavicular or axillary adenopathy. Neurological: Mental Status: She is alert. Psychiatric: Mood and Affect: Mood normal. Behavior: Behavior normal. Assessment/Plan Diagnoses and all orders for this visit: Cervical cancer screening - Pap Smear Cotest today. Repeat 5 years if normal/HPV negative. Report pelvic pain or abnormal bleeding. Screening examination for venereal disease - STI testing add on (NG, CT, Trich) - Hepatitis B Core Antibody, Total; Future - Hepatitis B Surface Antibody, Qualitative; Future - Hepatitis B surface antigen, EIA; Future - Hepatitis C Antibody with Reflex to HCV, RNA, Quantitative, Real-Time PCR; Future - Syphilis Screen; Future - HIV-1/2 Antigen and Antibodies, Fourth Generation, with Reflexes; Future Pap based and serum labs ordered. Will contact with results. Happy with condoms. May return any time if interested in another method or thinking about getting . documented in this encounter Plan of Treatment Upcoming Encounters Date Type Department Care Team (Late st Contact Info) Description 10/24/2025 9:00 AM EST Office Visit [facility] [address] [place] [address] Name, MD Lito [address] [place] [address] Scheduled Orders Name Type Priority Associated Diagnoses Orde r Schedule Pap Smear Pathology and Cytology Routine Cervical cancer screening Ordered: 08/21/2025 STI testing add on (NG, CT, Trich) Pathology and Cytology Routine Screening examination for venereal disease Ordered: 08/21/2025 Hepatitis B Core Antibody, Total Lab Routine Screening examination for venereal disease Expected: 08/21/2025 (Approximate), Expires: 08/21/2026 Hepatitis B Surface Antibody, Qualitative Lab Routine Screening examination for venereal disease Expected: 08/21/2025 (Approximate), Expires: 08/21/2026 Hepatitis B surface antigen, EIA Lab Routine Screening examination for venereal disease Expected: 08/21/2025 (Approximate), Expires: 08/21/2026 Hepatitis C Antibody with Reflex to HCV, RNA, Quantitative, Real-Time PCR Lab Routine Screening examination for venereal disease Expected: 08/21/2025 (Approximate), Expires: 08/21/2026 Syphilis Screen Lab Routine Screening examination for venereal disease Expected: 08/21/2025 (Approximate), Expires: 08/21/2026 HIV-1/2 Antigen and Antibodies, Fourth Generation, with Reflexes Lab Routine Screening examination for venereal disease Expected: 08/21/2025 (Approximate), Expires: 08/21/2026 documented as of this encounter Visit Diagnoses Diagnosis Cervical cancer screening- Primary Screening for malignant neoplasm of the cervix Screening examination for venereal disease documented in this encounter Additional Health Concerns Assessment Noted Time PHQ-9 Depression Total Score: 4 05/08/20 25 10:02 AM EDT documented as of this encounter Care Teams Thumb Sewer Relationship Specialty Start Date End Date Name, MD Lito [address] [place] [address] PCP - General Internal Medicine 05/08/25 documented as of this encounter
--- OUTSIDE RECORDS SUMMARY | 2025-08-21 18:51 | XMS_ITS | Encounter Summary ---
Author Organization [employer] Address [address] [place] [address] Care Team Providers Care Materials Coordinator Name Role Phone Name, Lito PHILIP Primary Care Provider [phone] Reason for Visit * Reason Comments Med Change Request Encounter Details Date Type Department Care Team ([facility] st Contact Info) Description 05/30/2025 Refill [facility] [address] [place], [place] [id number] Name, MD Lito [address] [place] [address] Social History Tobacco Use Types Packs/Day Years [...] AM EDT documented as of this encounter Plan of Treatment Upcoming Encounters Date Type Department Care Team (Late st Contact Info) Description 10/24/2025 9:00 AM EST Office Visit [facility] [address] [place] [id number] Name, MD Lito [address] [place] [address] documented as of this encounter Visit Diagnoses Not on filedocumented in this encounter Additional Health Concerns Assessment Noted Time PHQ-9 Depression Total Score: 4 05/08/20 10:02 AM EDT documented as of this encounter Care Teams Materials Coordinator Relationship Specialty Start Date End Date NameLito MD [address] [place] [id number] PCP - General Internal Medicine 05/08/25 documented as of this encounter
--- OUTSIDE RECORDS SUMMARY | 2025-08-21 18:51 | XMS_ITS | Clinical Summary ---
Author Organization [employer] Address [address] 7t [place] [address] Care Team Providers Care Apparel Cutter Name Role Phone Name, Lito PHILIP Primary Care Provider [phone] Allergies No known active allergies Medications fluticasone furoate (Arnuity Ellipta) 100 MCG/ACT inhalerIndicati ons:Asthma, unspecified asthma severity, unspecified whether complicated, unspecified whether persistent Inhale 1 puff Once per day. Rinse mouth with water after use to reduce aftertaste and incidence of candidiasis. Do not swallow. 1 each 05/08/20 25 026 Active albuterol 108 (90 Base) MCG/ACT inhalerIndicati ons:Asthma, unspecified asthma severity, unspecified whether complicated, unspecified whether persistent Inhale 2 puffs every 6 (six) hours if needed for wheezing. 18 g 11 05/08/20 25 026 Active baclofen (Lioresal) 10 MG tablet Take 1 tablet (10 mg) by mouth if needed at bedtime for muscle spasms. 30 tablet 05/08/20 25 Active montelukast (Singulair) 10 MG tabletIndicatio ns:Asthma, unspecified asthma severity, unspecified whether complicated, unspecified whether persistent TAKE 1 TABLET (10 MG) BY MOUTH ONCE PER DAY. 90 tablet 08/05/20 25 Active montelukast (Singulair) 10 MG tabletIndicatio ns:Asthma, unspecified asthma severity, unspecified whether complicated, unspecified whether persistent Take 1 tablet (10 mg) by mouth Once per day. 30 tablet 2 05/08/20 25 025 Discontinued Active Problems Problem Noted Date Diagnosed Date Asthma 05/08/2025 Encounters Date Type Department Care Team Description 08/21/2025 3:45 PM EST Procedure Visit [address] [address] Melly Javier CNM Cervical cancer screening (Primary Dx); Screening examination for venereal disease 08/21/2025 Travel 08/20/[address] [address] Lito Cabrera MD chartprep 08/03/[address] [address] Lito Cabrera MD Asthma, unspecified asthma severity, unspecified whether complicated, unspecified whether persistent 08/01/[address] [address] Marlyn Neri MA Dec recalls 07/29/[address] [address] Marlyn Neri MA [facility] Cancelled Appt (Provider out 07/29/25) 07/26/[address] [address] Marlyn Neri MA chart prep 05/30/[address] [address] Lito Cabrera MD from Last 3 Months Family History Medical History Relation Name Comments Diabetes Maternal Grandmother Breast cancer Neg Hx Colon cancer Neg Hx Ovarian cancer Neg Hx Relation Name Status Comments Maternal Grandmother Social History Tobacco Use Types Packs/Day Years [...] 12 08/21/2025 3:51 PM EST Oxygen Saturation 96% 05/08/2025 9:09 AM EDT Inhaled Oxygen Concentration - - Weight 73.8 kg (162 lb 12.8 oz) 08/21/2025 3:51 PM EST Height 170.2 cm (5' 7 ) 08/21/2025 3:51 PM EST Body Mass Index 25.5 08/21/2025 3:51 PM EST Plan of Treatment Upcoming Encounters Date Type Department Care Team (Late st Contact Info) Description 10/24/2025 9:00 AM EST Office Visit [facility] [address] [place] [address] Name, MD Lito [address] [facility] [place] [address] Health Maintenance Due Date Last Done Comments HPV Vaccines (1 - 3-dose series) 2009 DTaP/Tdap/Td Vaccines (1 - Tdap) 2013 Hepatitis B Vaccines (1 of 3 - 19+ 3-dose series) 2013 Pneumococcal Vaccine: Pediatrics (0 to 5 Years) and At-Risk Patients (6 to 49) Years (1 of 2 - PCV) 2013 Pap Smear 2015 Cervical Cancer Screening 2024 HPV/Cotest 2024 COVID-19 Vaccine (2 - 2024-2 6 season) 2025 05/05/2021 Influenza Vaccine (#1) 2025 Alcohol/Substance Use Screening 05/08/2026 05/08/2025 Depression Screening 05/08/2026 05/08/2025, 05/08/2025 Disability Screening 05/08/2026 05/08/2025 SDOH Screening 05/08/2026 05/08/2025 Tobacco Screening 05/08/2026 05/08/2025 Family Planning (PISQ) 08/21/2026 08/21/2025 Zoster Vaccines (1 of 2) 2044 RSV Patients and Patients Aged 60 years or older (1 - 1-dose 75+ series) 2069 HIV Screening Completed 07/23/2020 HIB Vaccines Aged Out No longer eligi ble based on patient's age to complete this topic Hepatitis A Vaccines Aged Out No long er eligible based on patient's age to complete this topic Hepatitis C Screening Discontinued IPV Vaccines Aged Out No longer eligi [...] on patient's age to complete this topic [place] [address] [address] [address] [place] [address] Care Teams Apparel Cutter Relationship Specialty Start Date End Date Name, MD Lito [address] [place] [id number] PCP - General Internal Medicine 05/08/25
--- OUTSIDE RECORDS SUMMARY | 2025-08-21 18:51 | XMS_ITS | Encounter Summary ---
Author Organization [employer] Address [address] [place] [address] Care Team Providers Care Professional Benefits Sales Consultant Name Role Phone Name, Lito PHILIP Primary Care Provider [phone] Encounter Details Date Type Department Care Team (Latest Contact Info) Description 08/21/2025 Travel Social History Tobacco Use Types Packs/Day Years [...] Description 10/24/2025 9:00 AM EST Office Visit [facility] [address] [place] [address] Name, MD Lito [address] [place] [address] documented as of this encounter Visit Diagnoses Not on filedocumented in this encounter Additional Health Concerns Assessment Noted Time PHQ-9 Depression Total Score: 4 05/08/20 10:02 AM EDT documented as of this encounter Care Teams Professional Benefits Sales Consultant Relationship Specialty Start Date End Date Name, MD Lito [address] [place] [id number] PCP - General Internal Medicine 05/08/25 documented as of this encounter
--- OUTSIDE RECORDS SUMMARY | 2025-08-21 18:51 | XMS_ITS | Encounter Summary ---
Author Organization [employer] Address [address] [place] [address] Care Team Providers Care Battery Stacker Name Role Phone Name, Lito PHILIP Primary Care Provider Reason for Visit * Reason Onset Date Comments chartprep 08/20/2025 Encounter Details Date Type Department Care Team ([facility] st Contact Info) Description 08/20/2025 Telephone [facility] [address] [place] [address] Name, MD Lito [address] [place] [address] chartprep Social History Tobacco Use Types Packs/Day Years [...] encounter Miscellaneous Notes * Telephone Encounter - Krystal Hitchcock MA - 08/20/2025 9:23 AM EST ..Chart Prep Labs: done Images: done XR Vaccines due: Covid Due, Tdap Due, Hep B Due, PCV20 Due, Flu Due, and HPV Referrals: OBGYN appointment pending Screenings: Not Applicable Overdue care gaps: None documented in this encounter Plan of Treatment Upcoming Encounters Date Type Department Care Team (Late st Contact Info) Description 10/24/2025 9:00 AM EST Office Visit [facility] [address] [place] [address] Name, MD Lito [address] [place] [address] documented as of this encounter Visit Diagnoses Not on filedocumented in this encounter Additional Health Concerns Assessment Noted Time PHQ-9 Depression Total Score: 4 05/08/20 10:02 AM EDT documented as of this encounter Care Teams Battery Stacker Relationship Specialty Start Date End Date NameLito MD [address] [place] [phone] PCP - General Internal Medicine 05/08/25 documented as of this encounter
[2025-08-22 06:33] LABS: Syphilis Screen Reactive (Nonreactive)
[2025-08-22 06:53] LABS: HBS Num1 1.07 mIU/mL (0-7.99); HBc Num1 0.08 S/CO (0.00-0.79); HBsAGNum1 0.44 S/CO (0.00-0.99); HIV Num 1 0.06 S/CO (0.00-0.99); Hepatitis B Surface Antigen Negative (Negative); ~HepC Num1 0.10 S/CO (0.00-0.79); ~Hepatitis B Surface Antibody NONREACTIVE (Nonreactive); ~Hepatitis C Antibody Nonreactive (Nonreactive)
[2025-08-23 16:19] LABS: Trichomonas (NAAT) NOT DETECTED (NOT DETECTED)
[2025-08-23 20:04] LABS: C. trachomatis RNA TMA NOT DETECTED (NOT DETECTED); N. gonorrhoeae RNA TMA NOT DETECTED (NOT DETECTED)
== END 2025-08-21 16:10 | disposition home or self-care (01) ==
LOC: HO.HHCL 16:09
PROVIDERS: PCP Internal Medicine Geriatric Medicine; Visit Provider Advanced Practice Midwife
DX: Z11.59 Encounter for screening for other viral diseases (principal); Z11.4 Encounter for screening for human immunodeficiency virus [HIV]; Z11.3 Encounter for screening for infections with a predominantly sexual mode of transmission; Z12.4 Encounter for screening for malignant neoplasm of cervix; Z20.2 Contact with and (suspected) exposure to infections with a predominantly sexual mode of transmission
CPT/HCPCS: 36415; 86592; 86704; 86706; 86780; 86803; 87340; 87389; 87491; 87591; 87626; 87661; 88175